=== PATIENT | male | born 1965 | race Two or more races ===

== ENCOUNTER 2024-07-24 17:30 | Emergency (ER) | payer BC, OTHER ==
[~2024-07-24] VITALS: Ht 182.9 cm; Wt 72.7 kg
--- NOTE | 2024-07-24 17:49 | ECG ---
[facility] Test Date: 2024-07-24 Test Time: 17:40:50 Pat Name: LUIS WATTS Department: ER Room: Gender: M Automated Weaver: DEMETRIS : 1965 Requested By: LORENZO KEITH Order Number: [id number] Reading MD: Measurements Intervals Hilliards Rate: 101 P: 52 GA: 197 QRS: -56 QRSD: 96 T: 53 QT: 335 QTc: 435 Interpretive Statements Sinus tachycardia Probable left atrial enlargement Left anterior fascicular block Please click the below link to view image of tracing.
[2024-07-24] MEDS: ACETAMINOPHEN 325 MG TAB PO ONE (18:42)
--- NOTE | 2024-07-24 18:45 | DVH ---
CLINICAL INFORMATION: 59 years old, Male; Syncopal event. TECHNIQUE: Axial imaging was obtained through the brain without contrast. Coronal and sagittal refor matted images were obtained, reviewed, and stored. Images were reviewed in brain and bone windows. A ll CT scans at this medical facility are performed using dose modulation techniques as appropriate to a performed exam including the following: Automated exposure control was utilized; adjustment of the MA and/or KV according to patient size; and use of iterative reconstruction technique. CTDIvol = 58.08 mGy DLP = 929.84 mGy-cm COMPARISON: None FINDINGS: There is no acute intracranial hemorrhage or extraaxial fluid collection. No mass effect o r midline shift. The ventricles and sulci are within normal limits in size for age. Basal cisterns a re patent. The calvarium is unremarkable. Mild mucosal thickening of the paranasal sinuses. Mild partial opacification of the inferior left mastoid air cells. IMPRESSION: 1. No CT evidence of acute intracranial abnormality. 2. Mild partial opacification of the inferior left mastoid air cells. Likely effusion. Correlate cli nically to exclude mastoiditis.
[2024-07-24 18:50] LABS: Basophils # (auto) 0 10 ^3/uL (0-0.2); Basophils % (auto) 0.1 % (0.0-2.0); Eosinophils # (auto) 0.1 10 ^3/uL (0-0.8); Eosinophils % (auto) 0.8 % (0.0-7.0); Hematocrit 43.6 % (41.0-53.0); Lymphocytes # (auto) 0.3 10 ^3/uL (0.4-5.4); Lymphocytes % (auto) 3.9 % (10.0-50.0); Mean Corpuscular Hemoglobin 32.2 pg (28.0-32.0); Mean Corpuscular Hgb Conc. 34.4 g/dL (32.0-36.0); Mean Corpuscular Volume 93.5 fL (80.0-100.0); Monocytes # (auto) 0.2 10 ^3/uL (0-1.3); Monocytes % (auto) 2.7 % (0.0-12.0); Neutrophils # (auto) 7.7 10 ^3/uL (1.6-8.6); Neutrophils % (auto) 92.5 % (37.0-80.0); Platelet Count (auto) 190 10^3/uL (140-450); Red Blood Cells 4.66 10^6/uL (4.5-5.90); Red Cell Distribution Width 13.5 % (11.8-14.3); White Blood Cell 8.3 10^3/uL (4.4-10.8)
[2024-07-24 18:52] LABS: Chloride 105 mmol/L (98-107); Potassium 4.3 mmol/L (3.5-5.1); Sodium 139 mmol/L (136-145)
[2024-07-24 18:53] LABS: Anion Gap 9 (5-15); Calcium 9.5 mg/dL (8.7-10.4); Carbon Dioxide 25 mmol/L (20-31)
[2024-07-24 18:58] LABS: Blood Urea Nitrogen 19 mg/dL (9-23)
[2024-07-24 19:04] LABS: Glucose 126 mg/dL (74-106)
[2024-07-24 19:14] LABS: Lactic Acid w/Reflex 2.6 mmol/L (0.4-2.0)
[2024-07-24 19:32] VITALS: PULSE 105; RESP 16; O2SAT 100
[2024-07-24] MEDS: SODIUM CHLORIDE 0.9% 1,000 ML IV ONE (20:16)
[2024-07-24 21:54] LABS: Urine Bacteria None Seen /hpf (None Seen)
[2024-07-24 21:58] LABS: Urine Blood Negative /uL (Negative); Urine Clarity Clear (Clear); Urine Protein, UAD Negative (Negative); Urine Specific Gravity 1.007 (1.001-1.035); Urine Squamous Epithelial Cell None Seen /hpf (<5); Urine Urobilinogen Normal (Negative); Urine WBC 1 /HPF (0-3)
[2024-07-24 21:59] LABS: Urine Color STRAW (Yellow)
--- NOTE | 2024-07-24 22:20 | ED.PDOC ---
Altered Mental Status HPI Comments This patient is a pleasant 59-year-old male who arrives the ED today via EMS due to a syncopal event while at work approximately 1/2 hour prior to arrival. Patient was working at the [employer] when he had a near syncopal event and slid down the wall that was directly behind him. Event was witnessed by a pat robbie who stated that he was altered for approximately 30 seconds. Patient states he does not recall the event. Patient was asymptomatic and comfortable at time of evaluation. Patient denies any history of cardiac, pulmonary or intracranial concerns. Chief Complaint: Syncope Time Seen by MD: 17:50 Reviewed Notes: Nurses Notes, Hospice Chaplain Notes Allergies: Coded Allergies: NO KNOWN ALLERGIES (Unverified , 07/24/24) Information Source: Patient, Emergency Med Personnel Mode of Arrival: EMS Severity: Moderate Timing: Minutes Duration: Minutes Prehospital treatment: 12 Lead EKG Quality: None Recent: None History of: None Associated Signs and Symptoms: None Past Medical History PAST MEDICAL HISTORY: Denies Surgical History: Denies all surgeries Family History Family History: Reviewed,noncontributory to illness, No family hx of Cancer, No family hx of DM, No family hx of Heart camryn, No family hx of HTN, No family hx ofKidney camryn, No family hx of Liver camryn, No family hx of Lung camryn, No family hx of Stroke Social History Smoker: Non-Smoker Alcohol: Denies ETOH Use Drugs: Denies Drug Use Lives In: Home Constitutional: denies: chills, diaphoresis, fatigue, fever, malaise, sweats, weakness, others EENTM: denies: blurred vision, double vision, ear bleeding, ear discharge, ear drainage, ear pain, ear ringing, eye pain, eye redness, hearing loss, mouth pain, mouth swelling, nasal discharge, nose bleeding, nose congestion, nose pain, photophobia, tearing, throat pain, throat swelling, voice changes, others Respiratory: denies: cough, hemoptysis, orthopnea, SOB at rest, shortness of breath, SOB with excertion, stridor, wheezing, others Cardiovascular: denies: chest pain, dizzy spells, diaphoresis, Dyspnea on exertion, edema, irregular heart beat, left arm pain, lightheadedness, palpitations, PND, syncope, others Gastrointestinal: denies: abdomen distended, abdominal pain, blood streaked bowels, constipated, diarrhea, dysphagia, difficulty swallowing, hematemesis, melena, nausea, poor appetite, poor fluid intake, rectal bleeding, rectal pain, vomiting, others Genitourinary: denies: burning, dysuria, flank pain, frequency, hematuria, incontinence, penile discharge, penile sore, pain, testicle pain, testicle swelling, urgency, others Neurological: reports: fainting; denies: dizziness, headache, left sided numbness, left sided weakness, numbness, paresthesia, pre-existing deficit, right sided numbness, right sided weakness, seizure, speech problems, tingling, tremors, weakness, others Musculoskeletal: denies: back pain, gout, joint pain, joint swelling, muscle pain, muscle stiffness, neck pain, others Integumetry: denies: bruises, change in color, change in hair/nails, dryness, laceration, lesions, lumps, rash, wounds, others Allergic/Immunocompromised: denies: Difficulty Healing, Frequent Infections, Hives, Itching, others Hematologic/Lymphatic: denies: anemia, blood clots, easy bleeding, easy bruising, swollen glands, others Endocrine: denies: excessive hunger, excessive sweating, excessive thirst, excessive urination, flushing, intolerance to cold, intolerance to heat, unexplained weight gain, unexplained weight loss, others Psychiatric: denies: anxiety, bipolar disorder, depression, hopeless, panic disorder, schizophrenia, sleepless, suicidal, others Physical Exam General Appearance: No Apparent Distress (Patient was in no distress and asymptomatic at time of evaluation.), Normal HEENT: Head (Unremarkable cranial evaluation. No signs of trauma. No skull depressions or deformities.), Normal ENT Inspection, Pharynx Normal, TMs Normal Neck: Full Range of Motion, Non-Tender, Normal, Normal Inspection Respiratory: Chest Non-Tender, Lungs Clear, No Accessory Muscle Use, No Respiratory Distress, Normal Breath Sounds Cardiovascular: No Edema, No JVD, No Murmur, No Gallop, Normal Peripheral Pulses, Regular Rate/Rhythm Breast Exam: Deferred Gastrointestinal: No Organomegaly, Non Tender, No Pulsatile Mass, Normal Bowel Sounds, Soft Genitalia: Deferred Pelvic: Deferred Rectal: Deferred Extremities: No calf tenderness, Normal capillary refill, Normal inspection, Normal range of motion, Non-tender, No pedal edema Neurologic: Alert, No Motor Deficits, Normal Affect, Normal Mood, No Sensory Deficits Cerebellar Function: Normal Reflexes: Normal Skin: Dry, Normal Color, Warm Lymphatic: No Adenopathy Was a procedure done? Was a procedure done?: No Differential Diagnosis (ALOC) Differential Diagnosis: Other (Acute coronary event, intracranial neoplasm, subarachnoid hemorrhage, vasovagal event, encephalopathy, sepsis, electrolyte abnormality) X-Ray, Labs, Meds, VS Vital Signs Date Time Temp Pulse Resp B/P (MAP) Pulse Ox O2 Delivery O2 Flow Rate FiO2 07/24/24 19:40 99.5 07/24/24 19:32 105 16 100 Room Air* 0 21 07/24/24 19:31 99.5 105 16 123/82 (96) 100 99.5 07/24/24 17:40 101 07/24/24 17:30 100.0 94 18 119/86 (97) 100 Lab Test 07/24/24 21:54 07/24/24 19:40 07/24/24 18:06 Range/Units Urine Color Straw Yellow Urine Clarity Clear Clear Urine pH 5.0 5.0-9.0 Urine Specific [place] 1.007 1.001-1.035 Urine Protein Negative Negative Urine Ketones Negative Negative Urine Blood Negative Negative /uL Urine Nitrite Negative Negative Urine Bilirubin Negative Negative Urine Urobilinogen Normal Negative mg/dL Urine Leukocyte Esterase Negative Negative /uL Urine RBC <1 0 - 3 /hpf Urine Microscopic WBC 1 0-3 /HPF Urine Squamous Epithelial Cells None seen <5 /hpf Urine Bacteria None seen None Seen /hpf Urine Glucose Normal Normal mg/dL Lactic Acid Level 1.6 2.6 *H 0.4-2.0 mmol/L White Blood Count 8.3 4.4-10.8 10^3/uL Red Blood Count 4.66 4.5-5.90 10^6/uL Hemoglobin 15.0 13.5-17.5 g/dL Hematocrit 43.6 41.0-53.0 % Mean Corpuscular Volume 93.5 80.0-100.0 fL Mean Corpuscular Hemoglobin 32.2 H 28.0-32.0 pg Mean Corpuscular Hemoglobin Concent 34.4 32.0-36.0 g/dL Red Cell Distribution Width 13.5 11.8-14.3 % Platelet Count 190 140-450 10^3/uL Mean Platelet Volume 8.9 6.9-10.8 fL Neutrophils (%) (Auto) 92.5 H 37.0-80.0 % Lymphocytes (%) (Auto) 3.9 L 10.0-50.0 % Monocytes (%) (Auto) 2.7 0.0-12.0 % Eosinophils (%) (Auto) 0.8 0.0-7.0 % Basophils (%) (Auto) 0.1 0.0-2.0 % Neutrophils # (Auto) 7.7 1.6-8.6 10 ^3/uL Lymphocytes # (Auto) 0.3 L 0.4-5.4 10 ^3/uL Monocytes # (Auto) 0.2 0-1.3 10 ^3/uL Eosinophils # (Auto) 0.1 0-0.8 10 ^3/uL Basophils # (Auto) 0 0-0.2 10 ^3/uL Nucleated Red Blood Cells 0.0 % Sodium Level 139 136-145 mmol/L Potassium Level 4.3 3.5-5.1 mmol/L Chloride Level 105 98-107 mmol/L Carbon Dioxide Level 25 20-31 mmol/L Anion Gap 9 5-15 Blood Urea Nitrogen 19 9-23 mg/dL Creatinine 0.95 0.700-1.30 mg/dL Glomerular Filtration Rate Calc 92 >90 mL/min BUN/Creatinine Ratio 20.0 10.0-20.0 Serum Glucose 126 H 74-106 mg/dL Calcium Level 9.5 8.7-10.4 mg/dL Troponin I High Sensitivity < 3 L </=54 ng/L Current Medications Medications (Trade) Dose Ordered Sig/Annie Route Start Time Stop Time Status Last Admin Acetaminophen (Tylenol Tablet) 1,000 mg ONCE ONCE PO 07/24/24 18:30 07/24/24 18:31 DC 07/24/24 18:42 Sodium Chloride 1,000 ml @ 1,000 mls/hr Q1H ONCE IV 07/24/24 19:45 07/24/24 20:44 DC 07/24/24 20:16 X-Ray, Labs, Meds, VS Comment All studies performed the ED were evaluated by me personally. Laboratories were unremarkable for any systemic concerns. Patient revealed a mild elevated lactic acid, but was resolved with some fluid rehydration. EKG revealed a mild sinus tachycardia with a rate of 101, probable left atrial enlargement and left anterior fascicular block. CT of the head was unremarkable for any acute intracranial processes. No systemic cause of the patient's encephalopathy of the event. Advised patient that if and event happens again, he will need to follow up with his primary care provider for a neurologic referral and evaluation. Advised good hydration and no straight leg standing while working. Time of 1ST Reevaluation: 22:17 Reevaluation 1ST: Improved Consultation: PCP Patient Education/Counseling: Diagnosis, Treatment Family Education/Counseling: Diagnosis, Treatment Departure 1 Departure Time of Disposition: 22:18 Impression: Primary Impression: Vasovagal episode Disposition: HOME / SELF CARE / HOMELESS Condition: Stable Additional Instructions: Advised good hydration and healthy nutrition over the next few weeks. If an event like this occurs again, patient will need to follow up with primary care provider for possible neurologic referral and evaluation. Discharged With: Self, Friend Critical Care Note Critical Care Time?: No Stability Stability form required: No Heart Score Heart Score: Heart Score Response (Comments) Value History N/A 0 EKG N/A 0 Age N/A 0 Risk Factors N/A 0 Troponin N/A 0 Total 0 ANANT FREY PAC Jul 24, 2024 22:20
[2024-07-24 23:45] VITALS: BP 132/82; PULSE 98; RESP 20; TEMP 99.3; O2SAT 98
== END 2024-07-24 23:47 | disposition home or self-care (01) ==
LOC: EDBD 17:30 → ER 17:30
DX: R55 Syncope and collapse (principal)
CPT/HCPCS: 36415; 70450; 80048; 81001; 83605; 84484; 85025; 93005; 96360; 99284; J7030